=== PATIENT | female | born 1955 | race Caucasian/White ===

== ENCOUNTER → 2016-11-07 | Outpatient (CLI) | payer BC ==
[~2016-11-07] MED LIST: METFORMIN HCL500 M1 PO; PRILOSEC20 MG PO; WELCHOL625 MG PO
--- NOTE | ~2016-11-07 | CT55 ---
[facility] A Service of [facility] & [facility] RADIOLOGY TEXT RESULTS PATIENT: MICHELLE HURLEY [facility] UN[facility] #: [id number] AGE: [address]: Robbie Nesbitt MD SEX: F ORDER DR: [id number] [facility] [address] [place], [place] [address] [id number] O MR#: [id number] Acc #: [id number] NAME: MICHELLE HURLEY : 1955 SEX: F STUDY DATE/TIME: 11/07/2016 12:54 UNIT: [facility] ROOM: STUDY DESCRIPTION: CT Chest W Con Attending Physician: Robbie Nesbitt M.D. Referring Physician: Robbie Nesbitt M.D. Ordering Physician: Robbie Nesbitt M.D. Primary Care Physician: Clau Cheng A.P.R.N. 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 This exam is requested for surveillance for metastatic disease. TECHNIQUE Axial CT images were obtained from the thoracic inlet through the dome of the diaphragm following the administration of intravenous contrast material. This CT exam was performed with one or more of the following radiation dose reduction techniques: automatic exposure control, adjustment of mA and/or kV according to patient size, and iterative reconstruction. FINDINGS There are post surgical changes involving the right upper lobe. I do not see any suspicious pulmonary nodules or masses to suggest recurrent or residual disease. The thyroid gland and trachea appear within normal limits. There is a small hiatal hernia. Mediastinal and hilar lymph nodes do not appear pathologically enlarged. Thoracic aorta measures within normal size limits. There is no evidence of dissection. There is no pleural effusion. There is some trace pericardial fluid, which is also present on the prior exam. Mildly prominent cardiophrenic node is unchanged when compared to the exam from May 2016. Patient's CT of the abdomen will be dictated separately. No aggressive osseous abnormalities are seen. IMPRESSION No convincing evidence of recurrent or residual disease. STS. [facility] A Service of [facility] & [facility] RADIOLOGY TEXT RESULTS PATIENT: MICHELLE HURLEY [facility] UNIT #: [id number] AGE: [address]: Robbie Nesbitt MD SEX: F ORDER DR: Dictated by... Catie Bearden M.D. THIS IS AN ELECTRONICALLY VERIFIED REPORT Catie Bearden M.D. at 11/09/2016 12:43 PM VIDHI/leticia TD: 11/07/2016 17:41 JOB #: [id number] MEDICAL IMAGING REPORT Page 1 of 1 COPY
--- NOTE | ~2016-11-07 | CT2 ---
[facility] A Service of [facility] & [facility] RADIOLOGY TEXT RESULTS PATIENT: MICHELLE HURLEY [facility] UNIT #: [id number] AGE: [address]: Robbie Nesbitt MD SEX: F ORDER DR: [id number] [facility] [address] [place], [place] [address] [id number] O MR#: [id number] Acc #: [id number] NAME: MICHELLE HURLEY : 1955 SEX: F STUDY DATE/TIME: 11/07/2016 12:54 UNIT: [facility] ROOM: STUDY DESCRIPTION: CT Abd and Pelv W Cont Attending Physician: Robbie Nesbitt M.D. Referring Physician: Robbie Nesbitt M.D. Ordering Physician: Robbie Nesbitt M.D. Primary Care Physician: Clau Cheng A.P.R.N. MEDICAL IMAGING REPORT This report is preliminary unless electronic signature is present EXAM CT of the abdomen and pelvis with contrast. INDICATION Lung cancer follow up, evaluate for metastatic disease. COMPARISON 05/20/16 TECHNIQUE The patient was given 100 mL of Isovue-370, and axial 5 mm were obtained through the abdomen and pelvis. Oral contrast was also administered. This CT exam was performed with one or more of the following radiation dose reduction techniques: automatic exposure control, adjustment of mA and/or kV according to patient size, and iterative reconstruction. FINDINGS The bones are unremarkable. The liver is slightly enlarged, but otherwise, normal. The gallbladder, spleen, pancreas, adrenal glands and kidneys are normal except for a 1 cm cyst in the upper pole of the right kidney. The aorta is normal in size and there is no adenopathy. The bowel is normal. There is a thin-walled water density lesion in the central pelvis, is most likely an ovarian cystic lesion. It is about 7.5 x 7.3 x 7.9 cm. It seems to be associated with the right ovary. It is slightly larger than on the prior study when it measured about 6.8 cm in maximum dimension, back in 2014, it measured 5.6 cm in maximum dimension. Uterus and adnexal regions and bladder are normal. IMPRESSION 1. Slowly enlarging thin-walled water density cystic lesion associated with the right ovary which is now about 8 cm in maximal dimension. It was about 5.7 cm in maximal dimension back in 2014. [facility] A Service of [facility] & [facility] RADIOLOGY TEXT RESULTS PATIENT: MICHELLE HURLEY LOCATION: [facility] : 53 UNIT #: [id number] AGE: [address]: Robbie Nesbitt MD SEX: F ORDER DR: 2. There is no evidence of metastatic disease from the patient's breast cancer. 3. Mild hepatomegaly. Dictated by... Andi Szymanski M.D. THIS IS AN ELECTRONICALLY VERIFIED REPORT Andi Szymanski M.D. at 11/07/2016 4:57 PM TOMAS/jose TD: 11/07/2016 16:38 JOB #: [id number] MEDICAL IMAGING REPORT Page 1 of 1 COPY
--- NOTE | ~2016-11-07 | MR17 ---
[facility] A Service of [facility] & [facility] RADIOLOGY TEXT RESULTS PATIENT: MICHELLE HURLEY LOCATION: [facility] : 53 UNIT #: [id number] AGE: [address]: Robbie Nesbitt MD SEX: F ORDER DR: [id number] [facility] [address] [place], [place] [address] [id number] O MR#: [id number] Acc #: [id number] NAME: MICHELLE HURLEY : 1955 SEX: F STUDY DATE/TIME: 11/07/2016 10:17 UNIT: [facility] ROOM: STUDY DESCRIPTION: MR Brain WWo Contrast Attending Physician: Robbie Nesbitt M.D. Referring Physician: Robbie Nesbitt M.D. Ordering Physician: Robbie Nesbitt M.D. Primary Care Physician: Clau Cheng A.P.R.N. MRI CENTER REPORT This report is preliminary unless electronic signature is present. EXAM MRI brain with and without. HISTORY Secondary malignant neoplasm right lung, malignant melanoma of skin/breast and cirrhosis. Patient fell last summer and has had dizziness and balance problems, increasing since, history of melanoma with metastatic disease to the lungs. Diagnosis first in 1996 with metastatic disease in 2014, also history of diabetes. COMMENT MRI of the brain was performed prior to and following intravenous administration of 16 mL of MultiHance. COMPARISON The comparison study is from 05/29/16. FINDINGS There is no evidence for a recent ischemic insult on the diffusion series. No Chiari-I malformation. Mild nonspecific white matter signal abnormality is probably due to small vessel disease. It is stable. There is no extraaxial fluid collection. The major intracranial flow voids are maintained. Mastoid air cells are clear. Paranasal sinuses show only minor mucosal thickening and no sinus air-fluid level. There is no MRI evidence for intracranial hemorrhage. The ventricles are normal in size and configuration for age group. There is no intracranial mass effect. Following contrast administration, there is no pathologic intracranial enhancement. IMPRESSION 1. No evidence for intracranial metastatic disease. 2. Mild nonspecific probable sequelae of small vessel disease not STS. [facility] A Service of [facility] & [facility] RADIOLOGY TEXT RESULTS PATIENT: MICHELLE HURLEY LOCATION: [facility] : 53 UNIT #: [id number] AGE: [address]: Robbie Nesbitt MD SEX: F ORDER DR: appreciably changed from prior. Dictated by... Leisa Coy M.D. THIS IS AN ELECTRONICALLY VERIFIED REPORT Leisa Coy M.D. at 11/07/2016 10:36 PM MARCELA/jose TD: 11/07/2016 21:02 JOB #: [id number] MRI CENTER REPORT Page 1 of 1 COPY
[2016-11-07 10:16] LABS: POC - CREATININE 0.85 mg/dL (0.44-1.03); POC - GFR >60.0 mL/min (>60)
== END | disposition home or self-care (01) ==
LOC: CMRI 09:36
PROVIDERS: Internal Medicine Hematology & Oncology
DX: C78.01 Secondary malignant neoplasm of right lung (principal); C43.52 Malignant melanoma of skin of breast; K74.60 Unspecified cirrhosis of liver; K76.6 Portal hypertension; R16.0 Hepatomegaly, not elsewhere classified
CPT/HCPCS: 70553; 71260; 74177; 82565; A9577; Q9967